=== PATIENT | female | born 1985 | race African-American/Black ===

== ENCOUNTER 2022-02-05 13:21 | Emergency (ER) | payer OTHER ==
[~2022-02-05] VITALS: Ht 165.1 cm; Wt 50.0 kg
[~2022-02-05 13:21] MED LIST: FERR142T6 PO; FOLI-43 PO; HYDR-523; HYDR2TAB4 PO; MORP30TA66; MULT-1146 PO
[2022-02-05] MEDS ORDERED: MORPHINE SULFATE 4 MG/ML CPJ (NOT FOR IM USE) IV STA (13:43)
[2022-02-05] MEDS ORDERED: ONDANSETRON HCL 4MG/2ML INJ IV STA (13:43)
[2022-02-05] MEDS ORDERED: KETOROLAC 15MG/ML VIAL IV ONE (13:45)
[2022-02-05] MEDS ORDERED: SODIUM CHLORIDE 0.9% 1,000 ML IV ONE (13:45)
[2022-02-05] MEDS ORDERED: HYDROCODONE/ACETAMINOPHEN 5/325MG TABLET PO ONE (14:30)
[2022-02-05 14:31] LABS: CLARITY URINE CLEAR (CLEAR); COLOR URINE YELLOW (YELLOW); KETONES URINE NEGATIVE (NEGATIVE); LEUKOCYTE ESTERASE URINE NEGATIVE (NEGATIVE); NITRITE URINE NEGATIVE (NEGATIVE); OCCULT BLOOD URINE NEGATIVE (NEGATIVE); PH URINE 6.5 (4.5-8.0); PROTEIN URINE 1+ (NEGATIVE); SPECIFIC GRAVITY URINE 1.014 (1.005-1.030)
[2022-02-05 14:55] LABS: BASOPHILS % 1.3 % (0.0-2.0); EOSINOPHILS % 1.4 % (0.0-5.0); HEMATOCRIT. 29.2 % (36.0-48.0); LYMPHOCYTES % 19.6 % (20.0-50.0); MEAN CORPUSCULAR HEMOGLOBIN 31.2 pg (28.0-32.0); MEAN CORPUSCULAR VOLUME 90.9 fL (81.0-99.0); MEAN PLATELET VOLUME 6.9 fl (7.4-10.4); MONOCYTES % 9.1 % (2.0-8.0); NEUTROPHILS % 68.6 % (40.0-76.0); PLATELET 405 x1000/uL (130-400); RED BLOOD CELL COUNT 3.21 mill/uL (4.2-5.4); RED CELL DISTRIBUTION WIDTH 19.2 % (11.6-14.6)
[2022-02-05 15:03] LABS: CHLORIDE 111 mEq/L (98-107)
[2022-02-05] MEDS ORDERED: DIPHENHYDRAMINE 50MG/ML VIAL IM ONE (15:15)
[2022-02-05] MEDS ORDERED: MORPHINE SULFATE 10 MG/ML CPJ IM ONE (15:15)
[2022-02-05 15:42] LABS: HCG SCREEN NEGATIVE
[2022-02-05] MEDS ORDERED: POTASSIUM CHLORIDE 20MEQ TABLET SR PO NR (15:45)
[2022-02-05 15:46] VITALS: BP 114/72
[2022-02-05] MEDS ORDERED: ONDANSETRON 4MG ODT PO ONE (16:00)
== END 2022-02-05 17:25 | disposition left against medical advice (07) ==
LOC: ER 13:31
DX: D57.00 Hb-SS disease with crisis, unspecified (principal); F17.210 Nicotine dependence, cigarettes, uncomplicated; Z98.890 Other specified postprocedural states; Z88.5 Allergy status to narcotic agent
CPT/HCPCS: 36415; 80053; 81003; 84703; 85025; 85044; 96372; 96374; 99284; J1200; J2270; J7030; Q0162

== ENCOUNTER 2022-05-11 12:52 | Emergency (ER) | payer OTHER ==
[~2022-05-11] VITALS: Ht 157.5 cm; Wt 43.0 kg
[2022-05-11 12:54] VITALS: BP 98/56
== END 2022-05-11 20:27 | disposition left against medical advice (07) ==
LOC: ER 12:52
DX: Z53.21 Procedure and treatment not carried out due to patient leaving prior to being seen by health care provider (principal)